=== PATIENT | female | born 1955 | race Caucasian/White ===

== ENCOUNTER 2021-08-18 13:46 | Emergency (ER) | payer MEDICARE | END 2021-08-18 17:55 | disposition home or self-care (01) | LOC: ER1 13:46 | DX: S01.311A Laceration without foreign body of right ear, initial encounter (principal); S51.811A Laceration without foreign body of right forearm, initial encounter; S01.01XA Laceration without foreign body of scalp, initial encounter; F17.210 Nicotine dependence, cigarettes, uncomplicated; E11.9 Type 2 diabetes mellitus without complications; W11.XXXA Fall on and from ladder, initial encounter; Y92.009 Unspecified place in unspecified non-institutional (private) residence as the place of occurrence of the external cause | CPT/HCPCS: 12002; 12011; 70450; 90471; 90715; 99283 ==